=== PATIENT | male | born 1935 | race Caucasian/White ===

== ENCOUNTER 2018-11-24 10:52 | Outpatient (CLI) | payer OTHER | END 2018-11-24 11:00 | disposition home or self-care (01) | LOC: SONOGRAMA 10:52 | DX: N40.0 Benign prostatic hyperplasia without lower urinary tract symptoms (principal); R31.0 Gross hematuria ==

== ENCOUNTER 2021-01-03 13:34 | Outpatient (CLI) | payer OTHER ==
--- NOTE | 2011-03-06 14:23 | NUR ---
1105AM SE RECIBE PACIENTE A RX ALERTA SE LE EDUCA SOBRE ESTUDIO ORDENADO REFIERE ENTENDER SE LE CANALIZA VENOPUNCION EN MANO RT CON ANGIO #18 BAJANDO .[id number] 250ML KVO BAJO LAS MEDIDAS ASEPTICAS SE LE REALIZA CTSCAN ABDOMEN W/C SE LE ADMINISTRA OPTIRAY 100ML EL CUAL TOLERA INES ORDEN MEDICA FINALIZA ESTUDIO AL MOMENTO NO QUEJAS REALIZADO POR L.MENDEZ SE LE D/C IVFS AREA JOHN EDEMA, SE LE REALIZA MRI L-S W/O INES ORDEN MEDICA REALIZADO POR E BROWN ANDRES SALE PACIENTE DE RX ALERTA AMBULANDO.
== END 2021-01-03 14:27 | disposition home or self-care (01) ==
LOC: MRI
PROVIDERS: ATTEND Urology
DX: N28.1 Cyst of kidney, acquired (principal); N40.1 Benign prostatic hyperplasia with lower urinary tract symptoms; N32.81 Overactive bladder
CPT/HCPCS: 72141; 72148